=== PATIENT | female | born 1935 | race Caucasian/White ===

== ENCOUNTER → 2016-12-30 | Outpatient (CLI) | payer OTHER | LOC: CAT 12:36 | DX: J84.10 Pulmonary fibrosis, unspecified (principal); R06.00 Dyspnea, unspecified ==

== ENCOUNTER → 2019-05-17 | Outpatient (CLI) | payer OTHER | LOC: SJCVC 10:03 | DX: I48.19 Other persistent atrial fibrillation (principal); I25.5 Ischemic cardiomyopathy; I50.20 Unspecified systolic (congestive) heart failure; I25.10 Atherosclerotic heart disease of native coronary artery without angina pectoris; Z90.49 Acquired absence of other specified parts of digestive tract; Z90.722 Acquired absence of ovaries, bilateral; Z95.1 Presence of aortocoronary bypass graft; Z79.899 Other long term (current) drug therapy ==

== ENCOUNTER → 2019-11-15 | Outpatient (CLI) | payer OTHER | LOC: SJCVC 10:07 → SJCVCIMAG 10:07 | PROVIDERS: ATTEND Internal Medicine | DX: I08.1 Rheumatic disorders of both mitral and tricuspid valves (principal); R94.31 Abnormal electrocardiogram [ECG] [EKG]; I49.3 Ventricular premature depolarization; I48.19 Other persistent atrial fibrillation; I42.9 Cardiomyopathy, unspecified; I11.0 Hypertensive heart disease with heart failure; I50.20 Unspecified systolic (congestive) heart failure; E80.6 Other disorders of bilirubin metabolism; Z95.1 Presence of aortocoronary bypass graft; Z79.899 Other long term (current) drug therapy ==

== ENCOUNTER → 2020-04-24 | Outpatient (CLI) | payer OTHER | LOC: SJCVC 12:33 | PROVIDERS: ATTEND Internal Medicine | DX: Z51.81 Encounter for therapeutic drug level monitoring (principal); I50.20 Unspecified systolic (congestive) heart failure; I48.91 Unspecified atrial fibrillation; I42.9 Cardiomyopathy, unspecified; Z79.01 Long term (current) use of anticoagulants; Z88.8 Allergy status to other drugs, medicaments and biological substances; Z79.891 Long term (current) use of opiate analgesic ==

== ENCOUNTER → 2020-10-22 | Outpatient (CLI) | payer OTHER | LOC: SJCVCIMAG 10:09 → SJCVC 10:09 | PROVIDERS: ATTEND Internal Medicine | DX: I08.8 Other rheumatic multiple valve diseases (principal); R06.09 Other forms of dyspnea; I48.91 Unspecified atrial fibrillation; I38 Endocarditis, valve unspecified; I25.5 Ischemic cardiomyopathy; K21.9 Gastro-esophageal reflux disease without esophagitis; E78.5 Hyperlipidemia, unspecified; I25.2 Old myocardial infarction; M19.90 Unspecified osteoarthritis, unspecified site; Z95.2 Presence of prosthetic heart valve; Z98.890 Other specified postprocedural states; Z79.899 Other long term (current) drug therapy; Z88.1 Allergy status to other antibiotic agents; Z88.8 Allergy status to other drugs, medicaments and biological substances; Z88.5 Allergy status to narcotic agent; Z79.82 Long term (current) use of aspirin ==

== ENCOUNTER → 2020-11-01 | Outpatient (CLI) | payer OTHER ==
[~2020-11-01] VITALS: Ht 180.3 cm; Wt 84.4 kg
[~2020-11-01] MED LIST: AMIODARONE HCL400 MG PO; CARVEDILOL12.5 MG PO; CHILDREN'S ZYRT10 M1 PO; CRESTOR5 MG PO; FUROSEMIDE 20 M20 MG PO; KLOR-CON 1010 MEQ PO; LISINOPRIL20 MG PO; MONTELUKAST SODI4 M1 PO; OMEPRAZOLE 20 M20 M1 PO; TOPROL XL25 MG PO; XARELTO20 MG PO
[2020-11-01 10:27] VITALS: BP 165/75
[2020-11-01 11:13] LABS: HEMATOCRIT 37.9 % (37.0-47.0); HEMOGLOBIN 12.3 gm/dL (12.0-15.0); MCH 31.3 pg (26.0-34.0); MCHC 32.5 g/dL (28.0-37.0); MCV 96.4 fL (80.0-100.0); RBC 3.93 mil/uL (4.20-5.00); RDW 16.8 % (10.5-14.5); WBC 7.6 thou/uL (4.0-11.0)
[2020-11-01 11:18] LABS: CREATININE 1.1 mg/dL (0.6-1.0); POTASSIUM 3.5 mmol/L (3.5-5.1)
--- NOTE | 2020-11-02 09:40 | EKG ---
[address] [address] [facility] [place] [address] ELECTROCARDIOGRAM REPORT Name: LENNY KHAN Room #: REG PATITO Cloud#: [id number] Admission: 11/01/20 Attend Phys: Serafin Gomez Discharge: Date of : 31 Report #: [id number] [facility] Test Date: 2020-11-01 Test Time: 09:51:18 Pat Name: LENNY KHAN Department: Room: Gender: F Human Resources Executive Assistant: CRAIG : 1935 Requested By: Serafin Gomez Order Number: [id number] MD: Vu Cid Measurements Intervals [place] Rate: 66 P: NC: QRS: 93 QRSD: 98 T: 21 QT: 481 QTc: 505 Interpretive Statements Atrial fibrillation Poor R wave progression Nonspecific ST and T wave abnormality Prolonged QT interval No previous ECG available for comparison Electronically Signed On 11-02-2020 9:39:55 CDT by Vu Cid [email or web address] <ELECTRONICALLY SIGNED> By: Vu Cid MD, [facility] 11/02/20 0939 [id number] Vu Cid MD, FACC /EPI
--- NOTE | 2020-11-02 09:43 | EKG ---
[address] [address] [employer] [place] [address] ELECTROCARDIOGRAM REPORT Name: LENNY KHAN Room #: REG [facility] Ai#: [id number] Admission: 11/01/20 Attend Phys: Serafin Gomez Discharge: Date of : 31 Report #: [id number] [facility] Test Date: 2020-11-01 Test Time: 11:31:10 Pat Name: LENNY KHAN Department: Room: Gender: F Research Administrator: CRAIG : 1935 Requested By: Serafin Gomez Order Number: [id number] MD: Vu Cid Measurements Intervals [place] Rate: 50 P: 11 CA: 256 QRS: 80 QRSD: 100 T: 73 QT: 532 QTc: 486 Interpretive Statements Sinus bradycardia Atrial premature complex Prolonged CA interval Abnormal R-wave progression, late transition Nonspecific ST and T wave abnormality Borderline prolonged QT interval Compared to ECG 11/01/2020 09:51:18 Atrial fibrillation is no longer present Electronically Signed On 11-02-2020 9:43:34 CDT by Vu Cid [email or web address] <ELECTRONICALLY SIGNED> By: Vu Cid MD, [facility] 11/02/20 0943 1131 [id number] Vu Cid MD, [facility] /EPI
== END | disposition home or self-care (01) ==
LOC: CATH 09:35
PROVIDERS: ATTEND Internal Medicine
DX: I48.91 Unspecified atrial fibrillation (principal); I25.5 Ischemic cardiomyopathy; I11.0 Hypertensive heart disease with heart failure; I50.22 Chronic systolic (congestive) heart failure; E78.5 Hyperlipidemia, unspecified; I25.2 Old myocardial infarction; J45.909 Unspecified asthma, uncomplicated; K21.9 Gastro-esophageal reflux disease without esophagitis; Z98.890 Other specified postprocedural states; Z79.899 Other long term (current) drug therapy; Z90.49 Acquired absence of other specified parts of digestive tract; Z90.710 Acquired absence of both cervix and uterus; Z95.1 Presence of aortocoronary bypass graft; Z86.73 Personal history of transient ischemic attack (TIA), and cerebral infarction without residual deficits; Z98.51 Tubal ligation status; Z79.01 Long term (current) use of anticoagulants

== ENCOUNTER → 2020-12-03 | Outpatient (CLI) | payer OTHER | LOC: SJCVC 15:32 | PROVIDERS: ATTEND Internal Medicine | DX: R94.31 Abnormal electrocardiogram [ECG] [EKG] (principal); R06.09 Other forms of dyspnea; I48.0 Paroxysmal atrial fibrillation; I38 Endocarditis, valve unspecified; I25.5 Ischemic cardiomyopathy; I48.91 Unspecified atrial fibrillation; E78.5 Hyperlipidemia, unspecified; M19.90 Unspecified osteoarthritis, unspecified site; Z98.890 Other specified postprocedural states; Z88.1 Allergy status to other antibiotic agents; Z88.5 Allergy status to narcotic agent; Z88.8 Allergy status to other drugs, medicaments and biological substances; Z79.82 Long term (current) use of aspirin; Z79.899 Other long term (current) drug therapy ==

== ENCOUNTER → 2021-04-08 | Outpatient (CLI) | payer OTHER | LOC: SJCVC 13:30 | PROVIDERS: ATTEND Internal Medicine | DX: I49.3 Ventricular premature depolarization (principal); R94.31 Abnormal electrocardiogram [ECG] [EKG]; R06.00 Dyspnea, unspecified; I11.0 Hypertensive heart disease with heart failure; I50.20 Unspecified systolic (congestive) heart failure; I48.0 Paroxysmal atrial fibrillation; I34.0 Nonrheumatic mitral (valve) insufficiency; I42.0 Dilated cardiomyopathy; J45.909 Unspecified asthma, uncomplicated; K21.9 Gastro-esophageal reflux disease without esophagitis; E78.5 Hyperlipidemia, unspecified; I35.1 Nonrheumatic aortic (valve) insufficiency; M19.90 Unspecified osteoarthritis, unspecified site; H35.30 Unspecified macular degeneration; Z79.899 Other long term (current) drug therapy; Z88.8 Allergy status to other drugs, medicaments and biological substances; Z82.49 Family history of ischemic heart disease and other diseases of the circulatory system ==